=== PATIENT | female | born 1990 | race Caucasian/White ===

== ENCOUNTER 2019-06-26 13:07 | Emergency (ER) | payer OTHER, SELFPAY ==
--- NOTE | 2019-06-26 14:36 | RAD ---
RIGHT KNEE FOUR VIEWS: 06/26/19 HISTORY: Injury, right knee pain. FINDINGS/IMPRESSION: No acute fracture or dislocation is identified. POS: TAB
== END 2019-06-26 14:30 | disposition home or self-care (01) ==
LOC: ERS 13:07
DX: M25.561 Pain in right knee (principal); W18.30XA Fall on same level, unspecified, initial encounter

== ENCOUNTER 2020-07-06 12:05 | Emergency (ER) | payer SELFPAY ==
[2020-07-06 17:47] LABS: SARS-CoV-2 PCR by NAA Not Detected (NotDetected)
== END 2020-07-06 13:20 | disposition home or self-care (01) ==
LOC: ERS 12:05
DX: R51.9 Headache, unspecified (principal); R10.9 Unspecified abdominal pain; R68.83 Chills (without fever); Z20.822 Contact with and (suspected) exposure to COVID-19
CPT/HCPCS: 87635; 99284; U0003; U0005

== ENCOUNTER 2020-10-27 09:07 | Emergency (ER) | payer SELFPAY ==
[2020-10-27 10:22] LABS: #Lymphocytes 1.6 thou/uL (1.20-3.40); #Monocytes 0.3 thou/uL (0.11-0.59); #Neutrophils 3.3 thou/uL (1.40-6.50); %Basophils 0.7 % (0.0-1.0); %Eosinophils 0.9 % (0.0-10.0); %Lymphocytes 30.4 % (21.0-51.0); %Monocytes 5.1 % (0.0-10.0); %Neutrophils 62.9 % (42.0-75.0); Hemoglobin 13.1 g/dL (12.0-16.0); Mean Corpuscular HGB CONC 33.2 g/dL (32.0-36.0); Mean Corpuscular Hemoglobin 28.2 pg (27.0-31.0); Mean Corpuscular Volume 84.9 fL (78.0-98.0); Mean Platelet Volume 7.8 fL (7.4-10.4); Platelet Count 193 thou/uL (130-400); RBC Distribution Width 12.2 % (11.5-14.5); Red Blood Cell (RBC) Count 4.65 mill/uL (4.20-5.40); White Blood Cell (WBC) Count 5.3 thou/uL (4.8-10.8)
[2020-10-27 10:39] LABS: ALT (SGPT) 13 U/L (8-55); AST (SGOT) 16 U/L (5-34); Albumin 4.1 g/dL (3.5-5.0); Alkaline Phosphatase 60 U/L (40-110); Anion Gap 13 mmol/L (10-20); BUN (Urea Nitrogen) 10 mg/dL (7.0-18.7); Bilirubin, Total 0.3 mg/dL (0.2-1.2); Calc. Creatinine Clearance 0 mL/min (70-130); Carbon Dioxide 21 mmol/L (22-29); Chloride 104 mmol/L (98-107); Globulin 3.4 g/dL (2.4-3.5); Glucose 89 mg/dL (70-105); Potassium 4.2 mmol/L (3.5-5.1); Protein, Total 7.5 g/dL (6.0-8.3); Sodium 134 mmol/L (136-145)
[2020-10-27 10:42] LABS: INR-International Normal Ratio 0.9; PTT 24.7 sec (22.9-36.1)
== END 2020-10-27 11:57 | disposition home or self-care (01) ==
LOC: ERS 09:07
DX: K92.2 Gastrointestinal hemorrhage, unspecified (principal)
CPT/HCPCS: 36415; 80053; 82274; 85025; 85610; 85730; 86850; 86900; 86901; 99284

== ENCOUNTER 2020-12-06 00:05 | Emergency (ER) | payer SELFPAY ==
[2020-12-06] MEDS ORDERED: Meclizine HCl 25 MG TAB ONE (03:15)
[2020-12-06 03:56] LABS: BHCG - Serum Negative (NEGATIVE); Pregs Control Background? CLEAR/WHITE (CLR/WHITE); Pregs Control Bar Appear? YES (CONTROL BAR)
== END 2020-12-06 04:56 | disposition home or self-care (01) ==
LOC: ERS 00:05
DX: U07.1 COVID-19 (principal); R42 Dizziness and giddiness
CPT/HCPCS: 84703; 93005